=== PATIENT | female | born 1980 | race Caucasian/White ===

== ENCOUNTER 2021-12-10 08:33 | Outpatient (CLI) | payer BC ==
[~2021-12-10] VITALS: Ht 167.7 cm; Wt 129.1 kg
[2021-12-10] MEDS ORDERED: DICL20GE TP (09:19)
[2021-12-10] MEDS ORDERED: VITAMIN B12 INJ (09:19)
[2021-12-10] MEDS ORDERED: SEMA0.25 SQ (09:19)
[2021-12-10] MEDS ORDERED: TRM50T PO (09:19)
[2021-12-10] MEDS ORDERED: HYDR12.56 PO (09:19)
[2021-12-10] MEDS ORDERED: CA C1TAB78 PO (09:19)
[2021-12-10] MEDS ORDERED: SERT-414 PO (09:19)
[2021-12-10] MEDS ORDERED: ATOR10TA66 PO (09:19)
[2021-12-10] MEDS ORDERED: LOSA50TA63 PO (09:19)
[2021-12-10] MEDS ORDERED: FURO20TA4 PO (09:19)
[2021-12-10] MEDS ORDERED: CHOL500049 PO (09:19)
[2021-12-10] MEDS ORDERED: LEVO25CA4 PO (09:19)
[2021-12-10] MEDS ORDERED: ERGO1250 PO (09:19)
[2021-12-10] MEDS ORDERED: METF-478 PO (09:19)
[2021-12-10] MEDS ORDERED: CETI10CA PO (10:29)
[2021-12-10 10:48] LABS: BILIRUBIN,URINE NEGATIVE (NEGATIVE); CLARITY,URINE CLEAR; COLOR,URINE YELLOW; GLUCOSE, URINE (UA) NEGATIVE (NEGATIVE); KETONES,URINE NEGATIVE (NEGATIVE); LEUKOCYTE ESTERASE ,URINE NEGATIVE (NEGATIVE); NITRITE,URINE NEGATIVE (NEGATIVE); PROTEIN,URINE NEGATIVE (NEGATIVE)
[2021-12-10 10:49] LABS: BASOPHILS % (AUTO) 1 % (0-10); EOSINOPHILS # (AUTO) 0.3 10^3/uL (0.0-0.3); EOSINOPHILS % (AUTO) 4 % (0-10); HEMATOCRIT 36 % (35-52); HEMOGLOBIN 11.3 g/dL (11.5-16.0); LYMPHOCYTES # (AUTO) 1.8 10^3/uL (1.0-4.0); LYMPHOCYTES % (AUTO) 22 % (12-44); MEAN CORPUSCULAR HEMOGLOBIN 28 pg (25-34); MEAN CORPUSCULAR HGB CONC 32 g/dL (32-36); MEAN CORPUSCULAR VOLUME 89 fL (80-99); MEAN PLATELET VOLUME 9.4 fL (9.0-12.2); MONOCYTES # (AUTO) 0.4 10^3/uL (0.0-1.0); MONOCYTES % (AUTO) 5 % (0-12); NEUTROPHILS # (AUTO) 5.5 10^3/uL (1.8-7.8); NEUTROPHILS % (AUTO) 68 % (42-75); PLATELET COUNT 296 10^3/uL (130-400); WHITE BLOOD COUNT 8.1 10^3/uL (4.3-11.0)
[2021-12-10 10:55] LABS: BACTERIA,URINE NEGATIVE /HPF; SQUAMOUS EPITHELIAL CELL,UR 0-2 /HPF
[2021-12-10 10:58] LABS: PROTHROMBIN TIME PATIENT 13.7 SEC (12.2-14.7)
[2021-12-10 11:00] VITALS: BP 145/89
[2021-12-10 11:03] LABS: ALBUMIN 3.6 GM/DL (3.2-4.5); BILIRUBIN,TOTAL 0.3 MG/DL (0.1-1.0); CALCIUM 9.1 MG/DL (8.5-10.1); CREATININE SERUM 0.75 MG/DL (0.60-1.30); POTASSIUM 4.1 MMOL/L (3.6-5.0)
--- NOTE | 2021-12-10 11:12 | Diagnostic Imaging Report ---
Indication: Preop left knee arthroplasty, degenerative joint disease PA and lateral chest Heart size and pulmonary vascularity are normal. Lungs are clear. There are no effusions or pneumothoraces. IMPRESSION: Negative chest Dictated by: Dictated on workstation # [id number]
[2021-12-10 11:45] LABS: ERYTHROCYTE SEDIMENTATION RATE 58 MM/HR (0-20)
== END 2021-12-10 12:54 ==
LOC: PREOP 08:33
PROVIDERS: ATTEND Orthopaedic Surgery
DX: Z01.818 Encounter for other preprocedural examination (principal); M17.12 Unilateral primary osteoarthritis, left knee
CPT/HCPCS: 36415; 71046; 80053; 81000; 85025; 85610; 85652; 86850; 86900; 86901; 87081; 93005

== ENCOUNTER 2021-12-16 06:10 | Inpatient (IN) | payer BC ==
--- NOTE | 2021-12-10 16:39 | HISTORY AND PHYSICAL ---
DATE OF SERVICE: ADMISSION HISTORY AND PHYSICAL DATE OF SURGERY: 12/16/2021 This will be for inpatient admission on 12/16/2021 for left total knee arthroplasty. The patient will require regular inpatient admission due to comorbidities, need for physical therapy and pain management. HISTORY OF PRESENT ILLNESS: The patient is a 41-year-old female with progressively worsening left knee pain. She reports pain medially as well as anteriorly. She reports it is progressive to the point where it is affecting her right knee. She reports marked activity limitations. She has undergone treatment with injections, anti-inflammatories and rest without relief. The patient understands that due to her young age, she will likely require revision at some point in the future. Radiographs reveal severe tricompartmental osteoarthritis. Due to functional impairment and failure to improve with conservative measures, the patient has elected to proceed with surgical intervention. REVIEW OF SYSTEMS: No chest pain, no shortness of breath, no dysuria. PAST MEDICAL HISTORY: Significant for diabetes, hypertension, vitamin B12 deficiency, hypercholesterolemia, hypothyroidism. MEDICATIONS: Losartan, hydrochlorothiazide, atorvastatin, metformin, Ozempic, levothyroxine, Zoloft, B12, tramadol, ibuprofen, and Voltaren. ALLERGIES: ERYTHROMYCIN, SILVER NITRATE. SOCIAL HISTORY: The patient is a former smoker. She denies alcohol use. PHYSICAL EXAMINATION: GENERAL: The patient is well-developed, well-nourished, in no acute distress. HEENT: Normocephalic, atraumatic. Pupils are equal, round and reactive to light. Oropharynx is clear. NECK: Supple. No lymphadenopathy. LUNGS: Clear to auscultation bilaterally. HEART: Regular rate and rhythm. ABDOMEN: Soft, nontender, nondistended. EXTREMITIES: The patient ambulates with an antalgic gait on the left. She has varus alignment. She has moderate effusion. She is tender along the medial joint line. She has marked patellofemoral crepitus and pain with patellar loading. There is no varus valgus laxity. Negative anterior and posterior drawer. Range of motion 0/3/120. She has a large Aguilar cyst posteriorly. IMPRESSION: Severe left knee osteoarthritis, unresponsive to conservative measures. PLAN: Left total knee arthroplasty. The risks, benefits, options, ramifications and recovery were discussed at length with the patient. She understands and wishes to proceed. Job ID: [id number] DocumentID: [id number] Dictated Date: 12/03/2021 09:23:13 Social Sciences Lecturer Date: 12/03/2021 11:31:42 Dictated By: LINDSAY DUBON MD
[~2021-12-16] VITALS: Ht 167.7 cm; Wt 129.1 kg
[2021-12-16] VITALS (11 sets, daily range): BP systolic 97–160; BP diastolic 61–83
[~2021-12-16 06:10] MED LIST: ATOR10TA66 PO; CA C1TAB78 PO; CETI10CA PO; CHOL500049 PO; DICL20GE TP; ERGO1250 PO; FURO20TA4 PO; HYDR12.56 PO; LEVO25CA4 PO; LOSA50TA63 PO; METF-478 PO; SEMA0.25 SQ; SERT-414 PO; TRM50T PO; VITAMIN B12 INJ
--- OUTSIDE RECORDS SUMMARY | 2021-12-16 06:19 | XMS REPORT | Clinical Summary ---
Author Author [facility] Organization [facility] Address Unknown Phone Unavailable Care Team Providers Care Roofing Layer Name Role Phone Walter Hernandez MD Unavailable Source Comments Some departments are not documenting in the electronic medical record. If you d o not see the information that you expected, contact Release of Information in [facility] Information Management department at [phone] for further assistan ce in locating additional records.[facility] Allergies Comments Active Allergy Reactions Severity Noted Date Erythromycin HIVES Medium 03/04/2016 Silver Nitrate HIVES Medium 03/04/2016 Applicators Medications End Date Status Medication Sig Dispensed Refills Start Date Active atorvastatin (LIPITOR) 20 Take 20 mg by 0 mg tablet mouth daily. Active metFORMIN (GLUCOPHAGE) Take 500 mg 0 500 mg tablet by mouth twice daily with meals. Active cyanocobalamin (VITAMIN Inject 1 mL 0 B-12, RUBRAMIN) 1,000 to area(s) as mcg/mL injection directed every 30 days. Active CALCIUM CARBONATE Take 1 Tab by 0 (CALCIUM 500 PO) mouth twice daily. Active ERGOCALCIFEROL (VITAMIN Take 1 Tab by 0 D2) (VITAMIN D PO) mouth daily. Active diclofenac sodium DR Take 50 mg by 0 (VOLTAREN) 50 mg tablet mouth twice daily. Active Problems Problem Noted Date Keloid of skin 03/04/2016 Medical History Medical History Date Comments DM (diabetes mellitus) (HCC) High cholesterol Family History Relation Name Status Comments Brother Alive Father Alive Mother Alive Social History Date Tobacco Use Types Packs/Day Years Used Started: 03/04/1998 Current Every Day Smoker Cigarettes 0.25 Smokeless Tobacco: Never Used Comments Alcohol Use Standard Drinks/Week No 0 (1 standard drink = 0.6 o z pure alcohol) Sex Assigned at Date Recorded Not on file Obstetrics History Last Filed Vital Signs Reading Time Taken Comments Vital Sign 126/86 03/04/2016 1:36 PM CDT Blood Pressure 80 03/04/2016 1:36 PM CDT Pulse - - Temperature - - Respiratory Rate - - Oxygen Saturation - - Inhaled Oxygen Concentration 42.5 kg (93 lb 9.6 oz) 03/04/2016 1:36 PM CDT Weight 170.2 cm (5' 7") 03/04/2016 1:36 PM CDT Height 14.66 03/04/2016 1:36 PM CDT Body Mass Index Plan of Treatment Health Maintenance Due Date Last Done Comments HIV SCREENING 1993 DTAP/TDAP VACCINES (1 - 1996 Tdap) HEPATITIS C SCREENING 1996 PHYSICAL (COMPREHENSIVE) 1996 EXAM CERVICAL CANCER SCREENING 1999 BREAST CANCER SCREENING 2018 INFLUENZA VACCINE 05/31/2021 Results Not on filefrom Last 3 Months Advance Directives Patient Java Swing Developer Explanation Type Date Recorded Advance Directive/DPOA Care Teams Start Date End Date Roofing Layer Relationship Specialty 03/04/16 Walter Hernandez MD Otolaryngolo [id number] [facility] [address] Pod C [place] [id number]
[2021-12-16] MEDS: LACTATED RINGERS 1,000 ML IV PRN ×2 (06:40→08:01)
[2021-12-16] MEDS ORDERED: CEFUROXIME 1.5 GM/15 ML (ZINACEF) VIAL ONE (07:07)
[2021-12-16] MEDS ORDERED: MIDAZOLAM 2 MG/2 ML (VERSED) VIAL ONE (07:12)
[2021-12-16] MEDS ORDERED: PROPOFOL INJECTION 50 ML IV ONE (07:12)
[2021-12-16] MEDS ORDERED: fentaNYL INJ 100 MCG/2 ML AMP ONE (07:18)
[2021-12-16] MEDS ORDERED: diphenhydrAMINE 50 MG/ML INJ (BENADRYL) IVP PRN (07:30)
[2021-12-16] MEDS ORDERED: ONDANSETRON 4 MG/2 ML (SDV) Z0FRAN IVP PRN ×2 (07:30→10:30)
[2021-12-16] MEDS ORDERED: NALOXONE 0.4 MG/ML 1 ML (NARCAN) VIAL IV PRN (07:30)
[2021-12-16] MEDS ORDERED: morphine PCA 100 MG/100 ML BAG IV PRN (07:30)
--- NOTE | 2021-12-16 07:30 | Progress Note-Pre Operative ---
Pre-Operative Progress Note H&P Reviewed The H&P was reviewed, patient examined and no changes noted. Date Seen by Provider: Dec 16, 2021 Time Seen by Provider: 07:20 Date H&P Reviewed: Dec 16, 2021 Time H&P Reviewed: 07:11 Pre-Operative Diagnosis: left knee primary osteoarthritis LINDSAY DUBON MD Dec 16, 2021 07:30
--- NOTE | 2021-12-16 07:31 | Progress Note-Post Operative ---
Post-Operative Progess Note Surgeon (s)/Wedding Consultant (s) Surgeon LINDSAY DUBON MD Wedding Consultant: Tanner Guthrie Pre-Operative Diagnosis left knee primary osteoarthritis Post-Operative Diagnosis left knee primary osteoarthritis Procedure & Operative Findings Date of Procedure 12/16/21 Procedure Performed/Findings left total knee arthroplasty Anesthesia Type Spinal Estimated Blood Loss Estimated blood loss (mL): 50 ml Specimens/Packing Specimens Removed none Packing: none LINDSAY DUBON MD Dec 16, 2021 07:31
--- NOTE | 2021-12-16 07:35 | D/C HH Face to Face Order ---
D/C Face to Face Orders Reconcile Patient Problems Problems Reviewed?: Yes Instructions for Patient [facility], Patient Instructions/FollowUp: three weeks Physician to follow Patient: three weeks Discharge Diet for Home: Regular Diet Patient Data-Allergies,Ht & Wt Patient Allergies: Coded Allergies: erythromycin base (Verified Allergy, Unknown, HIVES AND ITCHING, 12/10/21) indomethacin (Verified Allergy, Unknown, DIZZINESS, 12/10/21) silver nitrate (Verified Allergy, Unknown, HIVES, 12/10/21) Home Health Need/Face to Face Date of Face to Face: Dec 16, 2021 Clinical Findings: Muscle weakness, Pain with ambulation, Unsteady gait I have seen Pt [id number]: Yes Discharged To: Home Diagnosis/Conditions: left total knee arthroplasty Patient is Homebound due to: Muscle weakness, Pain w/ambulation Homebound Status Due to the above stated illness, injury or surgical procedure (medical condition or diagnosis) and associated clinical findings, the patient is homebound because of his/her inability to leave home except with aid of a supportive device and/or person AND leaving the home requires a considerable and taxing effort or is medically contraindicated. Pt req the following assistanc: [facility] Nursing Orders Home Health Services Order: Physical Therapy-Evaluate & Treat DC left knee nuno and apply steri strips 12/30/21 Therapy Orders Therapy Orders: Physical Therapy, PT to assess for OT Therapy Specific Orders: Eval assistive deivces, Teach enviro modifications/safety, Gait training, Increase strength/endurance, Provider maintenance therapy, Restore ROM Certify Stmt I certify that this patient is under my care and that I, a nurse practitioner or a physician; a preschool assistant working with me, had a face to face encounter that - meets the physician face to face encounter requirements with this patient as dated. LINDSAY DUBON MD Dec 16, 2021 07:35
[2021-12-16] MEDS ORDERED: CEFUROXIME INJECTION 1,500 MG in NS (IVPB) 50 ML IV ONE (07:45)
[2021-12-16] MEDS ORDERED: INTRA-ARTICULAR IU ONE ×5 (08:00)
[2021-12-16] MEDS ORDERED: BUPIVACAINE 0.5% 30 ML (SENSORCAINE) VIAL ONE (08:44)
[2021-12-16] MEDS ORDERED: ONDANSETRON 4 MG/2 ML (SDV) Z0FRAN ONE (08:44)
[2021-12-16] MEDS: SENNA W/DOCUSATE (SENOKOT S) TABLET PO SCH ×2 (09:00→20:01)
--- NOTE | 2021-12-16 09:58 | Progress Note ---
Standard Progress Note Progress Notes/Assess & Plan Date Seen by a Provider: Dec 16, 2021 Time Seen by a Provider: 09:55 Progress/Assessment & Plan post op check block in effect radiographs--HW well positioned without fracture LLE--2 plus DP pulse with brisk cap refill s/p L TKA mobilize when able LINDSAY DUBON MD Dec 16, 2021 09:58
[2021-12-16] MEDS ORDERED: CATHETER FLUSH 10 ML SYR IV PRN (11:00)
--- NOTE | 2021-12-16 11:01 | Diagnostic Imaging Report ---
INDICATION: Postop. FINDINGS: 2 views. There is total arthroplasty present of the left knee. Components are all in good alignment. There are no cortical fractures. There are skin nuno over the knee. IMPRESSION: Satisfactory appearing total arthroplasty left knee. Dictated by: Dictated on workstation # [id number]
[2021-12-16] MEDS: NS IV 1000 ML 1,000 ML IV SCH ×3 (11:33→22:46)
--- NOTE | 2021-12-16 11:53 | OPERATIVE REPORT ---
DATE OF SERVICE: 12/16/2021 PREOPERATIVE DIAGNOSIS: Left knee primary osteoarthritis. POSTOPERATIVE DIAGNOSIS: Left knee primary osteoarthritis. PROCEDURE: Left total knee arthroplasty. SURGEON: Enmanuel Dubon MD STOCKROOM ATTENDANT: Tanner Guthrie, who assisted throughout the procedure and closed the incision. ANESTHESIA: Spinal by Arianna Cooepr CRNA. TOURNIQUET TIME: 65 minutes at 300 mmHg. ESTIMATED BLOOD LOSS: Minimal. DRAINS: None. COMPLICATIONS: None. POSTOPERATIVE PLAN: Routine protocol. MATERIALS: Microport cemented size 4 femur, cemented size 4 tibia with a 14 mm insert and a cemented 29 patellar button. The patient was transferred to the recovery room, awake and in stable condition. STATEMENT OF MEDICAL NECESSITY: The patient is a 41-year-old female with longstanding progressive left knee pain. Radiographs revealed severe tricompartmental osteoarthritis. She has undergone treatment with injections, anti-inflammatories and rest and due to functional impairment and failure to improve with conservative measures, the patient elected to proceed with surgical intervention. DESCRIPTION OF PROCEDURE: After risks and benefits of procedure were discussed and questions were answered, an informed consent was signed and placed on chart, the operative site was confirmed in the preoperative holding area initialed by the surgeon. The patient was then transferred to the operating room after adequate levels of regional anesthetic were obtained, a timeout was called, confirming the operative site. The left lower extremity was prepped and draped in the usual sterile fashion with the leg elevated, tourniquet was inflated to 300 mmHg. Standard anterior approach was utilized. Hemostasis was obtained with cautery. A medial parapatellar arthrotomy was performed leaving 1 cm cuff on the patella for later reattachment. A portion of the fat pad was resected. A subperiosteal release was performed in the proximal medial tibia being careful to stay on the bony surface. The ACL was resected. The intramedullary guide was passed into the femoral canal. The distal cutting block was placed. Distal cut was made, the femur sized to a size 4. The 4 cutting block was placed parallel to the epicondylar axis and cuts were made from posterior to anterior. Subperiosteal release was then carefully performed on the posterior distal femur, being careful to stay on the bony surface. The intramedullary guide was then passed into the tibia. The cutting block was placed. The drop john transected the intermalleolar axis, and the cut was made. The four baseplate provided excellent coverage. This was pinned into position and the drop john transected the intermalleolar axis. This was then prepared with the drill and keel punch. The trochlear cut was made after placing the femoral trial. The patella was then prepared by resecting 10 mm off the undersurface. The peg guide was placed, and peg holes were drilled. The 29 trial button was placed 14 mm insert was placed. Knee was taken through range of motion. Full extension was easily obtained 120 degrees of flexion with gravity was easily obtained. There was no anterior/posterior or medial/lateral laxity in flexion or extension. The trials were removed. The joint was copiously irrigated with pulse lavage. The periarticular block was placed in the posterior capsule, medial and lateral retinaculum extensor mechanism, subcutaneous tissues. The bone ends were irrigated and dried. The tibial baseplate was cemented into position and excessive cement was removed, the superior surface was irrigated and dried and the polyethylene insert was placed. Distal femur was irrigated and dried and the femoral prosthesis was cemented into position. The knee was brought out into full extension until cement had cured. Excessive cement was removed from the femoral prosthesis as well. The undersurface of the patella was irrigated and dried. The patellar button was cemented into position. Excessive cement was removed. Once the cement had cured, the knee was taken through range of motion. Full extension was easily obtained 120 degrees of flexion with gravity was easily obtained. There was no anterior/posterior or medial/lateral laxity in flexion or extension and the patella tracked well. Joint was further irrigated with pulse lavage. The arthrotomy was closed with #2 Tevdek in jwlvbv-am-uauwa interrupted fashion. The knee was flexed. The repair was stable. Subcutaneous tissues were irrigated and dried using a total of 6 liters throughout the procedure. A 0 Vicryl was used for the deep subcutaneous tissue, 2-0 Vicryl for the superficial subcutaneous tissue, nuno used on the skin. A soft dressing was applied. The tourniquet was deflated. The patient was transferred to the recovery room awake and in stable condition. Job ID: [id number] DocumentID: [id number] Dictated Date: 12/16/2021 09:30:17 Channel Process Supervisor Date: 12/16/2021 11:51:53 Dictated By: ENMANUEL DUBON MD
--- NOTE | 2021-12-16 12:43 | Consultation - Hospitalist ---
HPI History of Present Illness: HPI/Chief Complaint Oriana Birmingham is a 41 year old female with PMH HTN, HLD, T2DM, hypothyroidism, depression, morbid obesity, who was admitted after a scheduled left total knee arthroplasty. She reports that she is in her normal state of health. She denies fevers, chills, chest pain, shortness of breath, cough, abdominal pain, nausea, vomiting, and diarrhea. She brought in her medications from home. Source: patient Exam Limitations: no limitations Date Seen 12/16/21 Attending Physician Enmanuel Hernandes MD PCP No,Local Physician Referring Physician Date of Admission Dec 16, 2021 at 06:10 Home Medications & Allergies Home Medications Reviewed patient Home Medication Reconciliation performed by pharmacy medication reconciliations hazardous waste material technician and/or nursing. Patients Allergies have been reviewed. Allergies Allergies Coded Allergies erythromycin base (Verified Allergy, Unknown, HIVES AND ITCHING, 12/10/21) indomethacin (Verified Allergy, Unknown, DIZZINESS, 12/10/21) silver nitrate (Verified Allergy, Unknown, HIVES, 12/10/21) Past Eodjalq-Opwoks-Grbqif Hx Patient Social History Tobacco Use?: Yes Tobacco type used: Cigarettes Smoking Status: Current Everyday Smoker Smokeless Tobacco Frequency: Current Everyday User Use of E-Cig and/or Vaping dev: Yes Use of E-Cig and/or Vaping Jared: Current Everyday User Substance use?: No Alcohol Use?: Yes Alcohol Frequency: Rarely Pt feels they are or have been: No Immunizations Up To Date First/Initial COVID19 Vaccinat: 10-17-2020 Second COVID19 Vaccination Moshe: 11-05-20 Seasonal Allergies Seasonal Allergies: Yes (WORSE WINTER AND SPRING) Current Status status: Yes status: No Advance Directives: No Communicates: Verbally Primary Language: Tajik Preferred Spoken Language: Tajik Is interpretation needed?: No Sensory deficits: Vision impairment Implanted or Applied Medical D: None Past Medical History Surgeries: Section, Tubal Ligation Currently Using CPAP: No Currently Using BIPAP: No High Cholesterol, Hypertension Hypothyroidsim, Diabetes, Non-Insulin dep Depression Family Medical History No Pertinent Family Hx Review of Systems Constitutional: no symptoms reported EENTM: no symptoms reported Respiratory: no symptoms reported Cardiovascular: no symptoms reported Gastrointestinal: no symptoms reported Genitourinary: no symptoms reported Musculoskeletal: joint pain Skin: no symptoms reported Psychiatric/Neurological: No Symptoms Reported Physical Exam Physical Exam Vital Signs Vital Signs - First Documented Capillary Refill : Height, Weight, BMI Height: '" Weight: lbs. oz. kg; 45.90 BMI Method: General Appearance: No Apparent Distress, Obese HEENT: PERRL/EOMI, Pharynx Normal Neck: Normal Inspection, Supple Respiratory: Lungs Clear, Normal Breath Sounds, No Respiratory Distress Cardiovascular: Regular Rate, Rhythm, No Edema, No Murmur Gastrointestinal: Normal Bowel Sounds, Non Tender, Soft Extremity: Normal Inspection, Non Tender, No Pedal Edema Neurologic/Psychiatric: Alert, Oriented x3, Normal Mood/Affect Skin: Normal Color, Warm/Dry Results Results/Procedures Labs Patient resulted labs reviewed. Imaging: Reviewed Imaging Report Assessment/Plan Assessment and Plan Assess & Plan/Chief Complaint Left knee primary osteoarthritis s/p total knee arthroplasty Ortho primary s/p TKA 12/16 Pain regimen Bowel regimen Incentive spirometry PT/OT HTN BP low normal Hold home meds for now T2DM Hold home meds Sliding scale insulin HLD Depression Hypothyroidism Continue home meds Morbid obesity Clinically significant, no acute management needs DVT prophylaxis: Lovenox Diagnosis/Problems Diagnosis/Problems (1) Osteoarthritis of left knee Status: Acute Qualifiers: Osteoarthritis type: primary Qualified Codes: M17.12 - Unilateral primary osteoarthritis, left knee (2) S/P total knee arthroplasty Status: Acute Qualifiers: Laterality: left Qualified Codes: Z96.652 - Presence of left artificial knee joint (3) HTN (hypertension) Status: Chronic (4) T2DM (type 2 diabetes mellitus) Status: Chronic Qualifiers: Diabetes mellitus skilled nursing insulin use: without skilled nursing use Diabetes mellitus complication status: without complication Qualified Codes: E11.9 - Type 2 diabetes mellitus without complications (5) HLD (hyperlipidemia) Status: Chronic (6) Depression Status: Chronic (7) Hypothyroidism Status: Chronic (8) Morbid obesity Status: Chronic SHARON SCHNEIDER MD Dec 16, 2021 12:43
--- NOTE | 2021-12-16 13:12 | Physical Therapy Evaluation ---
PT Evaluation-General Medical Diagnosis Admission Date Dec 16, 2021 at 06:10 Medical Diagnosis: L TKA Onset Date: Dec 16, 2021 Therapy Diagnosis Therapy Diagnosis: weakness, debility, s/p L TKA Precautions Precautions/Isolations: Fall Prevention, Standard Precautions Weight Bear Status Right Lower Extremity: Right Full Weight Bearing Left Lower Extremity: Left Weight Bearing/Tolerated Referral Physician: Cecilio Reason for Referral: Evaluation/Treatment Medical History Pertinent Medical History: DM, HTN Additional Medical History vitamin B12 deficiency, hypercholesterolemia, hypothyroidism. Current History Patient s/p elective left TKA Reviewed History: Yes Social History Home: Single Level Current Living Status: Children Entry Into Home: Stairs With Railing PT Steps Into Home: 3 Prior Prior Level of Function SCALE: Activities may be completed with or without assistive devices. 5-Dwdwgswqhg-qhkzjhj completes the activity by him/herself with no assistance from a helper. 5-Set-up or Clean-up Assistance-helper sets up or cleans up; patient completes activity. [place] assists only prior to or following the activity. 4-Supervision or Touching Assistance-helper provides verbal cues and/or touching/steadying and/or contact guard assistance as patient completes activity. Assistance may be provided throughout the activity or intermittently. 3-Partial/Moderate Assistance-helper does LESS THAN HALF the effort. [place] lifts, holds or supports trunk or limbs, but provides less than half the effort. 2-Substantial/Maximal Assistance-helper does MORE THAN HALF the effort. [place] lifts or holds trunk or limbs and provides more than half the effort. 4-Setspoiba-sccnqa does ALL the effort. Patient does none of the effort to complete the activity. Or, the assistance of 2 or more helpers is required for the patient to complete the activity. If activity was not attempted, code reason: 7-Patient Refused. 9-Not Applicable-not attempted and the patient did not perform the activity before the current illness, exacerbation or injury. 10-Not Attempted due to Environmental Limitations-(lack of equipment, weather restraints, etc.). 88-Not Attempted due to Medical Conditions or Safety Concerns. Bed Mobility: 6 Transfers (B,C,W/C): 6 Gait: 6 Stairs: 6 Indoor Mobility (Ambulation): Independent Stairs: Independent Patient reported that she had started to walk with a limp prior to surgery due to pain in her L knee PT Evaluation-Current Subjective Patient presents laying in bed. Patient agrees to physical therapy but reports that she cannot feel her feet yet due to the spinal block she received for surgery. Pt/Family Goals to be independent at home Objective Patient Orientation: Person, Place, Time, Situation Attachments: Polar Pack, IV ROM/Strength ROM Lower Extremities WFL Strength Lower Extremities R LE 4+/5 strength grossly L LE not tested due to recent surgery Integumentary/Posture Bowel Incontinence: No Bladder Incontinence: No Neuromuscular (Tone, Coordination, Reflexes) grossly intact Sensory Vision: Functional Hearing: Functional Sensation Lower Extremities Patient has no sensation in bilateral feet due to spinal block from recent surgery. Transfers Sit to Lying (QC): 4 Lying to Sitting/Side of Bed(Q: 3 Patient required min assist for bed mobility to help her move her L LE and to move to EOB. Gait Does the Patient Walk?: No and Walking Goal IS indicated Mode of Locomotion: Walk Anticipated Mode of Locomotion: Walk Balance Sitting Static: Normal Sitting Dynamic: Normal Standing Static: Normal Standing Dynamic: Fair Treatment Supine exercises: heel slides, Quad sets, SLR Seated exercises: Miguel Angel BATISTA 15 reps of each exercise Assessment/Needs Patient completed bed mobility, supine, and seated exercises. Patient was unable to perform OOB activities due to spinal block and having no sensation in her feet. Patient reported that prior to surgery she had started to develop a limp due to increased pain in her L knee. Patient requires skilled therapy to gain strength, ROM, and return to PLOF. Rehab Potential: Fair PT Snf Goals Snf Goals PT Snf Goals Time Frame: Dec 26, 2021 Roll Left & Right (QC): 6 Sit to Lying (QC): 6 Lying-Sitting on Side/Bed(QC): 6 Sit to Stand (QC): 6 Chair/Ncg-ol-Ltssc Xfer(QC): 6 Toilet Transfer (QC): 6 Walk 10 feet (QC): 6 Walk 50ft with 2 Turns (QC): 6 Walk 150 ft (QC): 6 1 Step (curb) (QC): 6 4 Steps (QC): 6 PT Plan Problem List Problem List: Activity Tolerance, Functional Strength, Safety, Balance, Gait, Transfer, Bed Mobility, ROM Treatment/Plan Treatment Plan: Continue Plan of Care Treatment Plan: Bed Mobility, Education, Functional Activity Emma, Functional Strength, Gait, Safety, Therapeutic Exercise, Transfers Treatment Duration: Dec 26, 2021 Frequency: 11 times per week Estimated Hrs Per Day: .25 hour per day Patient and/or Family Agrees t: Yes Safety Risks/Education Patient Education: Correct Positioning, Safety Issues Teaching Recipient: Patient Teaching Methods: Discussion Response to Teaching: Reinforcement Needed Discharge Recommendations Plan Therapy will include functional activity, gait training, exercises, and e ducation for patient to return to OF. Therapy Discharge Recommendati: Home & Family Time/GCodes Time In: 1248 Time Out: 1306 Total Billed Treatment Time: 18 Total Billed Treatment 1 Visit EVMod 18 min ROSANNE ARCE PT Dec 16, 2021 13:12
[2021-12-16] MEDS: CEFUROXIME INJECTION 750 MG in NS (IVPB) 50 ML IV SCH ×2 (15:43→22:53)
[2021-12-16] MEDS: oxyCODONE/APAP 5/325MG (PERCOCET 5) TABLET PO PRN ×3 (18:15→22:46)
[2021-12-16] MEDS: AtorvaSTATin TABLET 10 MG TABLET PO SCH (20:01)
[2021-12-16] MEDS ORDERED: CYCLOBENZAPRINE 10 MG (FLEXERIL) TAB ONE (22:44)
[2021-12-16] MEDS: CYCLOBENZAPRINE 10 MG (FLEXERIL) TAB PO PRN (22:46)
[2021-12-17 00:04] VITALS: BP 118/80
[2021-12-17] MEDS: oxyCODONE/APAP 5/325MG (PERCOCET 5) TABLET PO PRN ×10 (00:44→23:30)
[2021-12-17 04:12] VITALS: BP 116/79
[2021-12-17 06:18] LABS: HEMOGLOBIN 10.8 g/dL (11.5-16.0)
[2021-12-17] MEDS: MULTIVIT W/MINERALS TAB (THERAGRAN M) PO SCH (06:25)
[2021-12-17] MEDS: LEVOTHYROXINE 25 MCG (LEVOTHROID) TAB PO SCH (06:26)
--- NOTE | 2021-12-17 07:44 | Progress Note ---
Standard Progress Note Progress Notes/Assess & Plan Date Seen by a Provider: Dec 17, 2021 Time Seen by a Provider: 07:43 Progress/Assessment & Plan post op check block in effect radiographs--HW well positioned without fracture LLE--2 plus DP pulse with brisk cap refill s/p L TKA mobilize when able Final Diagnosis no complaints Vital Signs Date Time Temp Pulse Resp B/P (MAP) Pulse Ox O2 Delivery O2 Flow Rate FiO2 12/17/21 06:00 18 12/17/21 04:12 36.4 96 18 116/79 (91) 97 Room Air 12/17/21 00:04 36.2 100 18 118/80 (93) 95 Room Air 12/16/21 19:51 37.1 109 18 151/82 (105) 95 Room Air 12/16/21 19:50 96 Room Air 12/16/21 16:31 Room Air 12/16/21 16:08 36.6 88 19 160/80 (106) 88 Room Air 12/16/21 12:33 36.1 77 20 114/77 (89) 96 Room Air 12/16/21 10:20 96 Room Air 12/16/21 10:20 35.8 77 18 97/65 (76) 99 Room Air 12/16/21 10:15 Room Air 12/16/21 10:10 36.2 16 115/61 (79) 98 Room Air 12/16/21 10:00 14 129/72 (91) 98 Room Air 12/16/21 10:00 Room Air 12/16/21 09:50 17 142/78 (99) 98 Room Air 12/16/21 09:40 Room Air 12/16/21 09:40 16 134/62 (86) 98 Room Air 12/16/21 09:30 16 128/71 (90) 96 Room Air 12/16/21 09:19 Room Air 12/16/21 09:19 36.5 18 128/70 (89) 98 Room Air I & O 12/17/21 07:00 Intake Total 4290 ml Output Total 400 ml Balance 3890 ml Laboratory Tests Test 12/16/21 21:26 12/17/21 06:07 Range/Units Glucometer 146 H 70-110 MG/DL Hemoglobin 10.8 L 11.5-16.0 g/dL Hematocrit 35 35-52 % LLE--intact sensation distally . able to perform SLR intact DF and PF of toes and ankle s/p ROBERT PT/OT LINDSAY DUBON MD Dec 17, 2021 07:44
[2021-12-17 08:10] VITALS: BP 122/81
[2021-12-17] MEDS: ASPIRIN E.C. 81 MG (ECOTRIN) TAB PO SCH (08:23)
[2021-12-17] MEDS: ENOXAPARIN 30 MG/0.3 ML (LOVENOX) SYR SC SCH ×2 (08:23→20:32)
[2021-12-17] MEDS: SERTRALINE 100 MG (ZOLOFT) TAB PO SCH (08:23)
[2021-12-17] MEDS: SENNA W/DOCUSATE (SENOKOT S) TABLET PO SCH ×2 (08:23→20:32)
--- NOTE | 2021-12-17 08:47 | Anesthesia-Regional Post-Op ---
Regional Patient Condition Mental Status: Alert, Oriented x3 Circulation: Same as Pre-Op Headache: Absent Sensation: Full Recovery Motor Block: Absent Post Op Complications Complications None Follow Up Care/Instructions Patient Instructions None needed. Anesthesia/Patient Condition Patient is doing well, no complaints, stable vital signs, no apparent adverse anesthesia problems. No complications reported per nursing. JANELLE MILNER CRNA Dec 17, 2021 08:47
--- NOTE | 2021-12-17 09:38 | Physical Therapy Daily Note ---
PT Daily Note-Current Subjective Patient presented in her chair and agreed to get up and walk with therapy. Patient reports most of her pain in in the front of her knee. Mental Status Patient Orientation: Person, Place, Time, Situation Attachments: Polar Pack, IV Transfers SCALE: Activities may be completed with or without assistive devices. 6-Qjgdmulvpe-wvopvum completes the activity by him/herself with no assistance from a helper. 5-Set-up or Clean-up Assistance-helper sets up or cleans up; patient completes a ctivity. [place] assists only prior to or following the activity. 4-Supervision or Touching Assistance-helper provides verbal cues and/or touching/steadying and/or contact guard assistance as patient completes activity. Assistance may be provided throughout the activity or intermittently. 3-Partial/Moderate Assistance-helper does LESS THAN HALF the effort. [place] lifts, holds or supports trunk or limbs, but provides less than half the effort. 2-Substantial/Maximal Assistance-helper does MORE THAN HALF the effort. [place] lifts or holds trunk or limbs and provides more than half the effort. 2-Lnxwnceto-ncdbua does ALL the effort. Patient does none of the effort to complete the activity. Or, the assistance of 2 or more helpers is required for the patient to complete the activity. If activity was not attempted, code reason: 7-Patient Refused. 9-Not Applicable-not attempted and the patient did not perform the activity before the current illness, exacerbation or injury. 10-Not Attempted due to Environmental Limitations-(lack of equipment, weather restraints, etc.). 88-Not Attempted due to Medical Conditions or Safety Concerns. Sit to Stand (QC): 4 Toilet Transfer (QC): 3 Patient was CGA for sit to stand and required min assist to stand up of the toilet. Weight Bearing Right Lower Extremity: Right Full Weight Bearing Left Lower Extremity: Left Weight Bearing/Tolerated Gait Training Does the Patient Walk?: Yes Distance: 150' Walk 10 feet (QC): 4 Walk 50 ft with 2 Turns(QC): 4 Walk 150 ft (QC): 4 Gait Assistive Device: FWW Patient ambulated 150' with FWW and CGA. Patient performed a step to gait pattern and had difficulty putting weight through her whole left foot. Patient ambulated with her toe out and required verbal cues to put her heel down while walking. Exercises Seated Therapy Exercises: Long arc quads, Hip flexion Seated Reps: 15 Assessment Patient ambulated, performed seated exercises, and performed a toilet transfer during therapy session. Patient ambulated very slowly with step to gait pattern. Patient was left post tx in her chair with polar pack on, nurse call, and all needs met. PT Halfway Goals Lap Regulator Goals PT Halfway Goals Time Frame: Dec 26, 2021 Roll Left & Right (QC): 6 Sit to Lying (QC): 6 Lying-Sitting on Side/Bed(QC): 6 Sit to Stand (QC): 6 Chair/Ooz-jm-Wvzsw Xfer(QC): 6 Toilet Transfer (QC): 6 Walk 10 feet (QC): 6 Walk 50ft with 2 Turns (QC): 6 Walk 150 ft (QC): 6 1 Step (curb) (QC): 6 4 Steps (QC): 6 PT Plan Problem List Problem List: Activity Tolerance, Functional Strength, Safety, Balance, Gait, Transfer, Bed Mobility, ROM Treatment/Plan Treatment Plan: Continue Plan of Care Treatment Plan: Bed Mobility, Education, Functional Activity Emma, Functional Strength, Gait, Safety, Therapeutic Exercise, Transfers Treatment Duration: Dec 26, 2021 Frequency: 11 times per week Estimated Hrs Per Day: .25 hour per day Patient and/or Family Agrees t: Yes Time/GCodes Time In: 745 Time Out: 810 Total Billed Treatment Time: 25 Total Billed Treatment 1 Visit EX 10 min Gait 15 min UNIQUE BOWLING PT Dec 17, 2021 09:38
--- NOTE | 2021-12-17 10:37 | Occ Therapy Progress Note ---
Therapy Progress Note OT order received, chart reviewed. Pt. up in chair. Pt. very pleasant and oriented x 4. States that she has been getting up to go to the bathroom. OT educates her on purpose of services and asks if she has any concerns at this time. She does not. Pt. indicates that while she has not practiced donning socks or shoes, she will have her spouse who does not work that can assist if needed. OT educates her on use of toilet tongs if needed when pt. attempts to cleanse self for first time after BM, but pt. states that she does not think this will be a problem as long as she has her IV out. Pt. does not feel that she needs OT services at this time. Would like to rest. Does not have to use bathroom and does not have any other needs at this moment. Will discharge pt. at this time. 1, visit [id number] Discharge ANIL FERRELL OT Dec 17, 2021 10:37
[2021-12-17 11:09] VITALS: BP 123/83
[2021-12-17] MEDS: NS IV 1000 ML 1,000 ML IV SCH (14:19)
--- NOTE | 2021-12-17 14:27 | Physical Therapy Daily Note ---
PT Daily Note-Current Subjective Patient presented in her chair and agreed to participate with therapy. Patient reported that she just had a pain pill but her L knee pain was 8/10. Pain Numeric Pain Scale: 8 Location: Left Location Body Site: Knee Pain Description: Acute Mental Status Patient Orientation: Person, Place, Time, Situation Attachments: Polar Pack, IV Transfers SCALE: Activities may be completed with or without assistive devices. 2-Umuquzhnek-ttmpfra completes the activity by him/herself with no assistance from a helper. 5-Set-up or Clean-up Assistance-helper sets up or cleans up; patient completes activity. [place] assists only prior to or following the activity. 4-Supervision or Touching Assistance-helper provides verbal cues and/or touching/steadying and/or contact guard assistance as patient completes activity. Assistance may be provided throughout the activity or intermittently. 3-Partial/Moderate Assistance-helper does LESS THAN HALF the effort. [place] lifts, holds or supports trunk or limbs, but provides less than half the effort. 2-Substantial/Maximal Assistance-helper does MORE THAN HALF the effort. [place] lifts or holds trunk or limbs and provides more than half the effort. 4-Nlgvshgbn-kgytkq does ALL the effort. Patient does none of the effort to complete the activity. Or, the assistance of 2 or more helpers is required for the patient to complete the activity. If activity was not attempted, code reason: 7-Patient Refused. 9-Not Applicable-not attempted and the patient did not perform the activity before the current illness, exacerbation or injury. 10-Not Attempted due to Environmental Limitations-(lack of equipment, weather restraints, etc.). 88-Not Attempted due to Medical Conditions or Safety Concerns. Sit to Lying (QC): 3 Lying to Sitting/Side of Bed(Q: 4 Sit to Stand (QC): 4 Chair/Mgg-cp-Hfwew Xfer(QC): 4 Patient required mod assist to transfer from EOB to supine but required CGA for all other transfers. Weight Bearing Right Lower Extremity: Right Full Weight Bearing Left Lower Extremity: Left Weight Bearing/Tolerated Gait Training Does the Patient Walk?: Yes Distance: 225' Walk 10 feet (QC): 4 Walk 50 ft with 2 Turns(QC): 4 Walk 150 ft (QC): 4 Gait Assistive Device: FWW Patient ambulated with FWW and CGA for 225'. Patient performed step to gait pattern and had difficulty putting weight through her left foot due to pain. P atient would not put her L heel down due to pain. Exercises Supine Ex: Quad Set, Heel Slides, Straight leg raise Supine Reps: 15 Seated Therapy Exercises: Long arc quads, Hip flexion Seated Reps: 15 Assessment Patient ambulated and performed seated and supine exercises. Patient performed all transfers with CGA but required mod assist to get her L LE into bed when transferring from EOB to supine. Patient ambulation is increasing but speed and distance but patient is still performing step to gait pattern. Patient required assistance for SLR and LAQ for the first few reps but was able to perform the exercises independently after that. Patient reports that she has 3 stairs to get into her house so stair training will be completed tomorrow morning. PT Rater Associate Goals Long-Term Goals PT Rater Associate Goals Time Frame: Dec 26, 2021 Roll Left & Right (QC): 6 Sit to Lying (QC): 6 Lying-Sitting on Side/Bed(QC): 6 Sit to Stand (QC): 6 Chair/Wou-ex-Yadyp Xfer(QC): 6 Toilet Transfer (QC): 6 Walk 10 feet (QC): 6 Walk 50ft with 2 Turns (QC): 6 Walk 150 ft (QC): 6 1 Step (curb) (QC): 6 4 Steps (QC): 6 PT Plan Problem List Problem List: Activity Tolerance, Functional Strength, Safety, Balance, Gait, Transfer, Bed Mobility, ROM Treatment/Plan Treatment Plan: Continue Plan of Care Treatment Plan: Bed Mobility, Education, Functional Activity Emma, Functional Strength, Gait, Safety, Therapeutic Exercise, Transfers Treatment Duration: Dec 26, 2021 Frequency: 11 times per week Estimated Hrs Per Day: .25 hour per day Patient and/or Family Agrees t: Yes Time/GCodes Time In: 1320 Time Out: 1353 Total Billed Treatment Time: 33 Total Billed Treatment 1 Visit Gait 15 min EX 18 min UNIQUE BOWLING PT Dec 17, 2021 14:27
[2021-12-17 15:37] VITALS: BP 121/57
[2021-12-17 19:03] VITALS: BP 122/70
[2021-12-17] MEDS: AtorvaSTATin TABLET 10 MG TABLET PO SCH (20:32)
[2021-12-18] VITALS: BP 110/77
--- NOTE | 2021-12-18 00:47 | DISCHARGE SUMMARY ---
DATE OF SERVICE: DIAGNOSES: 1. Left knee primary osteoarthritis. 2. Diabetes. 3. Hypertension. 4. Hypercholesterolemia. 5. Hypothyroidism. 6. Vitamin B12 deficiency. PROCEDURE: Left total knee arthroplasty. SUMMARY: The patient is a 41-year-old female who underwent a left total knee arthroplasty on the day of admission. Postoperatively, she progressed well. At the time of discharge, her wound was clean and dry. She had no calf tenderness. Negative Homans sign. CONDITION AT DISCHARGE: Good. DISCHARGE DIET: Regular. FOLLOWUP: Followup is in three weeks. Home physical therapy will be arranged. DISCHARGE MEDICATIONS: Home medications, aspirin one per day for 30 days, Percocet as needed for pain. ACTIVITIES: Weightbearing as tolerated with walker. DIET: Diabetic. Job ID: [id number] DocumentID: [id number] Dictated Date: 12/17/2021 15:54:44 Personnel Generalist Manager Date: 12/18/2021 00:46:52 Dictated By: LINDSAY DUBON MD
[2021-12-18] MEDS: oxyCODONE/APAP 5/325MG (PERCOCET 5) TABLET PO PRN ×4 (02:20→12:19)
[2021-12-18] MEDS: CYCLOBENZAPRINE 10 MG (FLEXERIL) TAB PO PRN ×2 (02:55→12:19)
[2021-12-18] MEDS: NS IV 1000 ML 1,000 ML IV SCH (02:55)
[2021-12-18 04:00] VITALS: BP 121/84
[2021-12-18] MEDS: MULTIVIT W/MINERALS TAB (THERAGRAN M) PO SCH (05:18)
[2021-12-18] MEDS: LEVOTHYROXINE 25 MCG (LEVOTHROID) TAB PO SCH (05:18)
--- NOTE | 2021-12-18 06:57 | Progress Note ---
Standard Progress Note Progress Notes/Assess & Plan Date Seen by a Provider: Dec 18, 2021 Time Seen by a Provider: 06:56 Progress/Assessment & Plan post op check block in effect radiographs--HW well positioned without fracture LLE--2 plus DP pulse with brisk cap refill s/p L TKA mobilize when able Final Diagnosis no complaints Vital Signs Date Time Temp Pulse Resp B/P (MAP) Pulse Ox O2 Delivery O2 Flow Rate FiO2 12/18/21 06:54 18 12/18/21 04:00 36.2 95 18 121/84 (96) 92 Room Air 12/18/21 00:00 36.4 95 19 110/77 (88) 94 Room Air 12/17/21 21:55 96 Room Air 12/17/21 20:41 95 Room Air 12/17/21 19:03 36.8 98 18 122/70 (87) 93 Room Air 12/17/21 18:00 18 12/17/21 15:37 36.6 98 18 121/57 (78) 96 Room Air 12/17/21 11:09 36.6 93 18 123/83 (96) 96 Room Air 12/17/21 08:10 36.6 101 20 122/81 (95) 97 Room Air 12/17/21 08:00 96 Room Air I & O 12/18/21 07:00 Intake Total 3510 ml Balance 3510 ml Laboratory Tests Test 12/18/21 05:47 Range/Units Hemoglobin 9.0 L 11.5-16.0 g/dL Hematocrit 29 L 35-52 % L knee incision clean and dry. No calf tenderness. Neg Erik's s/p L tka DC home after PT today LINDSAY DUBON MD Dec 18, 2021 06:57
[2021-12-18] MEDS ORDERED: morphine INJ 4 MG/ML 1 ML (VIAL/SYRINGE) IVP PRN (07:00)
[2021-12-18 07:25] VITALS: BP 134/84
[2021-12-18] MEDS: SENNA W/DOCUSATE (SENOKOT S) TABLET PO SCH (08:13)
[2021-12-18] MEDS: ASPIRIN E.C. 81 MG (ECOTRIN) TAB PO SCH (08:13)
[2021-12-18] MEDS: ENOXAPARIN 30 MG/0.3 ML (LOVENOX) SYR SC SCH (08:14)
[2021-12-18] MEDS: SERTRALINE 100 MG (ZOLOFT) TAB PO SCH (08:14)
--- NOTE | 2021-12-18 09:07 | Physical Therapy Daily Note ---
PT Daily Note-Current Subjective Patient presented sitting in her chair and agreed to participate with physical therapy. Mental Status Patient Orientation: Person, Place, Time, Situation Transfers SCALE: Activities may be completed with or without assistive devices. 9-Gfvjxpqnvv-hyvfcwa completes the activity by him/herself with no assistance from a helper. 5-Set-up or Clean-up Assistance-helper sets up or cleans up; patient completes activity. [place] assists only prior to or following the activity. 4-Supervision or Touching Assistance-helper provides verbal cues and/or touching/steadying and/or contact guard assistance as patient completes activity. Assistance may be provided throughout the activity or intermittently. 3-Partial/Moderate Assistance-helper does LESS THAN HALF the effort. [place] lifts, holds or supports trunk or limbs, but provides less than half the effort. 2-Substantial/Maximal Assistance-helper does MORE THAN HALF the effort. [place] lifts or holds trunk or limbs and provides more than half the effort. 7-Vhfwbodvn-ezpwjv does ALL the effort. Patient does none of the effort to complete the activity. Or, the assistance of 2 or more helpers is required for the patient to complete the activity. If activity was not attempted, code reason: 7-Patient Refused. 9-Not Applicable-not attempted and the patient did not perform the activity before the current illness, exacerbation or injury. 10-Not Attempted due to Environmental Limitations-(lack of equipment, weather restraints, etc.). 88-Not Attempted due to Medical Conditions or Safety Concerns. Sit to Lying (QC): 4 Lying to Sitting/Side of Bed(Q: 6 Sit to Stand (QC): 5 Chair/Oca-qc-Grkll Xfer(QC): 5 Toilet Transfer (QC): 6 Patient required CGA for transferring from EOB to supine due to weakness in her RLE Weight Bearing Right Lower Extremity: Right Full Weight Bearing Left Lower Extremity: Left Weight Bearing/Tolerated Gait Training Does the Patient Walk?: Yes Distance: 250' Walk 10 feet (QC): 5 Walk 50 ft with 2 Turns(QC): 5 Walk 150 ft (QC): 5 Gait Assistive Device: FWW Patient ambulated with set up assistance for 250'. Stair Training Stair Training: Handrails/: 2 handrails #of Steps: 2 1 Step (curb) (QC): 3 Stairs: Pattern: Step to Patient climbed 2 steps with step to gait pattern. Patient required lots of cues and encouragement to climb stairs. Exercises Supine Ex: Quad Set, Heel Slides, Straight leg raise Supine Reps: 15 Seated Therapy Exercises: Long arc quads, Hip flexion Seated Reps: 15 Assessment Patient completed therapy exercises with addition of stair training today in preparation for discharge. Patient required frequent cues and PT to block her L knee because she had difficulty fulling extending it when shifting all her weight onto it to climb up on the stairs. Patient resisted PROM of knee flexion and reported significant amount so pain during the activity. Patient ROM is progressing very slowly. Patient ambulated slowly and still has difficulty putting her heel down when walking. PT [facility] Goals State Manager Goals PT State Manager Goals Time Frame: Dec 26, 2021 Roll Left & Right (QC): 6 Sit to Lying (QC): 6 Lying-Sitting on Side/Bed(QC): 6 Sit to Stand (QC): 6 Chair/Mtp-yh-Iqmyc Xfer(QC): 6 Toilet Transfer (QC): 6 Walk 10 feet (QC): 6 Walk 50ft with 2 Turns (QC): 6 Walk 150 ft (QC): 6 1 Step (curb) (QC): 6 4 Steps (QC): 6 PT Plan Problem List Problem List: Activity Tolerance, Functional Strength, Safety, Balance, Gait, Transfer, Bed Mobility, ROM Treatment/Plan Treatment Plan: Continue Plan of Care Treatment Plan: Bed Mobility, Education, Functional Activity Emma, Functional Strength, Gait, Safety, Therapeutic Exercise, Transfers Treatment Duration: Dec 26, 2021 Frequency: 11 times per week Estimated Hrs Per Day: .25 hour per day Patient and/or Family Agrees t: Yes Safety Risks/Education Patient Education: Gait Training, Steps, Reviewed Precautions, Safety Issues Teaching Recipient: Patient Teaching Methods: Discussion Time/GCodes Time In: 734 Time Out: 807 Total Billed Treatment Time: 33 Total Billed Treatment 1 Visit FA 20 min EX 17 min UNIQUE BOWLING PT Dec 18, 2021 09:07
[2021-12-18 11:13] VITALS: BP 121/58
[2021-12-18 13:45] VITALS: BP 121/58
== END 2021-12-18 13:55 | disposition home health service (06) | DRG 470 ==
LOC: 4TH 06:10 → SURG 06:11 → 4TH 10:11
PROVIDERS: ADMIT Orthopaedic Surgery; ATTEND Orthopaedic Surgery
PROC: 0SRD0J9 Replacement of Left Knee Joint with Synthetic Substitute, Cemented, Open Approach (ICD-10-PCS; principal; 2021-12-16 07:30)
DX: M17.12 Unilateral primary osteoarthritis, left knee (principal); Z68.42 Body mass index [BMI] 45.0-49.9, adult; E11.9 Type 2 diabetes mellitus without complications; I10 Essential (primary) hypertension; E78.00 Pure hypercholesterolemia, unspecified; E03.9 Hypothyroidism, unspecified; E53.8 Deficiency of other specified B group vitamins; F17.210 Nicotine dependence, cigarettes, uncomplicated; F32.A Depression, unspecified; E66.01 Morbid (severe) obesity due to excess calories
CPT/HCPCS: 36415; 73560; 82947; 84703; 85014; 85018; 86850; 86900; 86901; 94664; 94760